=== PATIENT | male | born 1970 | race Caucasian/White ===

== ENCOUNTER 2017-05-05 15:23 | Emergency (ER) | payer OTHER ==
[2017-05-05 15:26] VITALS: BP 148/90; PULSE 106; TEMP 98.4; BMI 35.2
[2017-05-05] MEDS ORDERED: IBUPROFEN 600 MG TABLET (FP) PO ONE (16:12)
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
[2017-05-05] MEDS ORDERED: IBUPROFEN 400 MG TABLET (FP) PO ONE (16:18)
== END 2017-05-05 16:37 | disposition home or self-care (01) ==
LOC: JERFT 15:23
DX: S39.012A Strain of muscle, fascia and tendon of lower back, initial encounter (principal); M62.830 Muscle spasm of back; X50.1XXA Overexertion from prolonged static or awkward postures, initial encounter; Y93.89 Activity, other specified; X08.8XXA Exposure to other specified smoke, fire and flames, initial encounter; Y92.89 Other specified places as the place of occurrence of the external cause; Y99.0 Civilian activity done for income or pay
CPT/HCPCS: 99281-25

== ENCOUNTER 2017-12-13 02:43 | Emergency (ER) | payer OTHER ==
[2017-12-13 02:55] VITALS: BP 149/96; PULSE 101; TEMP 98.1; BMI 34.4
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
[2017-12-13] MEDS ORDERED: NAPROXEN 500 MG TABLET (FP) PO ONE (03:27)
[2017-12-13] MEDS ORDERED: NAPROXEN 500 MG TABLET (FP) ONE (03:33)
== END 2017-12-13 04:17 | disposition home or self-care (01) ==
LOC: JER 02:43
DX: S16.1XXA Strain of muscle, fascia and tendon at neck level, initial encounter (principal); X50.0XXA Overexertion from strenuous movement or load, initial encounter; W01.0XXA Fall on same level from slipping, tripping and stumbling without subsequent striking against object, initial encounter; Y93.89 Activity, other specified; Y92.414 Local residential or business street as the place of occurrence of the external cause; Y99.0 Civilian activity done for income or pay
CPT/HCPCS: 99283-25

== ENCOUNTER 2018-03-08 07:05 | Emergency (ER) | payer OTHER ==
[2018-03-08 07:17] VITALS: BP 136/90; PULSE 88; TEMP 98; BMI 34.4
[2018-03-08] MEDS ORDERED: IBUPROFEN 600 MG TABLET (FP) PO ONE ×2 (07:24→07:32)
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
== END 2018-03-08 08:50 | disposition home or self-care (01) ==
LOC: JER 07:05
DX: S39.82XA Other specified injuries of lower back, initial encounter (principal); W10.8XXA Fall (on) (from) other stairs and steps, initial encounter; Y93.89 Activity, other specified; Y92.89 Other specified places as the place of occurrence of the external cause; Y99.0 Civilian activity done for income or pay; X02.8XXA Other exposure to controlled fire in building or structure, initial encounter
CPT/HCPCS: 72100-TC-FY; 99282-25

== ENCOUNTER 2019-04-26 11:24 | Emergency (ER) | payer OTHER ==
[2019-04-26 11:31] VITALS: BP 159/100; PULSE 97; TEMP 98; BMI 34.4
[2019-04-26] MEDS ORDERED: IBUPROFEN 400 MG TABLET (FP) PO ONE ×2 (11:35→11:43)
[2019-04-26] MEDS ORDERED: METHOCARBAMOL 500 MG TABLET PO ONE (11:35)
[2019-04-26] MEDS ORDERED: METHOCARBAMOL 500 MG TABLET ONE ×2 (11:40→11:41)
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
[2019-04-26] MEDS ORDERED: CYCLOBENZAPRINE HCL 10 MG TABLET (FP) PO ONE (11:43)
[2019-04-26] MEDS ORDERED: CYCLOBENZAPRINE HCL 10 MG TABLET (FP) ONE (11:44)
== END 2019-04-26 11:50 | disposition home or self-care (01) ==
LOC: JERFT 11:24
DX: R25.2 Cramp and spasm (principal); S16.1XXA Strain of muscle, fascia and tendon at neck level, initial encounter; X58.XXXA Exposure to other specified factors, initial encounter; Y93.89 Activity, other specified; Y92.410 Unspecified street and highway as the place of occurrence of the external cause; Y99.0 Civilian activity done for income or pay; I10 Essential (primary) hypertension
CPT/HCPCS: 99281-25

== ENCOUNTER 2019-12-07 15:36 | Emergency (ER) | payer OTHER ==
[2019-12-07 16:04] VITALS: BP 144/97; PULSE 82; TEMP 98.5; BMI 34.4
--- NOTE | 2019-12-07 16:20 | PDOC ---
History of Present Illness - General Chief Complaint: Injury Stated Complaint: NECK/SHOULDER INJ Time Seen by Provider: 12/07/19 16:12 - History of Present Illness Initial Comments: 12/07/19 16:18 49-year-old male with a past medical history of psoriasis on Humira presents for evaluation of right shoulder pain. Patient states he was climbing up a ladder with a tool on his hand when he forcefully grabbed the leg of the ladder feeling a strain in his right shoulder Past History - Past Medical History Allergies/Adverse Reactions: Allergies Allergy/AdvReac Type Severity Reaction Status Date / Time No Known Allergies Allergy Verified 04/26/19 11:31 Home Medications: Ambulatory Orders Atorvastatin Ca [Lipitor] 20 mg PO HS 03/08/18 Lotrel 10-40 1 tab PO DAILY 03/08/18 Methocarbamol [Robaxin -] 500 mg PO BID PRN #14 tablet 04/26/19 Naproxen 500 mg PO BID PRN #20 tablet 04/26/19 Cyclobenzaprine HCl [Flexeril 10 mg] 10 mg PO HS PRN #10 tablet 12/07/19 COPD: No HTN: Yes - Immunization History Td Vaccination: Yes Immunization Up to Date: Yes - Psycho Social/Smoking Cessation Hx Smoking Status: No Smoking History: Never smoked Years of Tobacco Use: 0 Have you smoked in the past 12 months: No Number of Cigarettes Smoked Daily: 0 Cigars Per Day: 0 Information on smoking cessation initiated: No Hx Alcohol Use: No Drug/Substance Use Hx: No Substance Use Type: None Review of Systems - Review of Systems Musculoskeletal: Yes: Joint Pain, Neck Pain *Physical Exam - Vital Signs Last Vital Signs Temp Pulse Resp BP Pulse Ox 98.5 F 82 17 144/97 95 12/07/19 16:01 12/07/19 16:01 12/07/19 16:01 12/07/19 16:01 12/07/19 16:01 - Physical Exam 12/07/19 16:18 Right shoulder skin color and temperature normal range of motion is full and nonpainful 5 out of 5 strength with supraspinatus isolation negative impingement maneuvers negative Spurling sign mild tenderness about the right levator scapula with palpable spasm no gross sensorimotor deficits neurovascular intact Medical Decision Making - Medical Decision Making 12/07/19 16:19 Right shoulder strain follow-up with Ortho Discharge - Discharge Information Problems reviewed: Yes Clinical Impression/Diagnosis: Right shoulder strain Condition: Stable Disposition: HOME - Admission No - Additional Discharge Information Prescriptions: Cyclobenzaprine HCl [Flexeril 10 mg] 10 mg PO HS PRN #10 tablet PRN Reason: Muscle Spasms - Follow up/Referral Referrals: Fortunato Trimble DO [Staff Physician] - - Patient Discharge Instructions Additional Instructions: Tylenol and Motrin as directed for pain. Please take the muscle relaxer as prescribed. Return to the emergency room for worsening symptoms. And without fail follow-up with orthopedic surgery in 2 to 3 days for further evaluation and treatment options. - Post Discharge Activity Work/Back to School Note: Back to Work
== END 2019-12-07 16:23 | disposition home or self-care (01) ==
LOC: JERFT 15:36
DX: S46.811A Strain of other muscles, fascia and tendons at shoulder and upper arm level, right arm, initial encounter (principal); X50.0XXA Overexertion from strenuous movement or load, initial encounter; Y93.39 Activity, other involving climbing, rappelling and jumping off; Y92.89 Other specified places as the place of occurrence of the external cause; Y99.0 Civilian activity done for income or pay
CPT/HCPCS: 99283-25

== ENCOUNTER 2021-06-21 18:32 | Emergency (ER) | payer OTHER ==
[2021-06-21 18:53] VITALS: BP 153/95; PULSE 92; TEMP 98; BMI 32.5
[2021-06-21] MEDS ORDERED: DIPHTH,PERTUSS(ACELL),TET 0.5 ML DISP.SYRIN IM ONE ×3 (19:34→19:35)
== END 2021-06-21 19:45 | disposition home or self-care (01) ==
LOC: JERFT 18:32
PROC: 3E0234Z Introduction of Serum, Toxoid and Vaccine into Muscle, Percutaneous Approach (ICD-10-PCS; principal; 2021-06-21)
DX: S60.511A Abrasion of right hand, initial encounter (principal); W22.8XXA Striking against or struck by other objects, initial encounter
CPT/HCPCS: 73130-TC-RT-FY; 90715; 99283-25

== ENCOUNTER 2021-08-13 13:32 | Emergency (ER) | payer OTHER ==
[2021-08-13 13:56] VITALS: BP 111/74; PULSE 88; TEMP 97; BMI 32.3
[2021-08-13] MEDS ORDERED: ONDANSETRON 4 MG/2 ML VIAL IVPUSH ONE (15:04)
[2021-08-13] MEDS ORDERED: FAMOTIDINE 20 MG/50 ML IVPB 20 MG/50 ML MG IVPB ONE ×2 (15:04→15:19)
[2021-08-13] MEDS ORDERED: SODIUM CHLORIDE 0.9% 500 ML INFUS.BAG IV ONE (15:04)
[2021-08-13] MEDS ORDERED: ONDANSETRON 4 MG/2 ML VIAL ONE (15:19)
[2021-08-13 15:29] LABS: BASO % 0.4 % (0-2.0); EOS % 1.1 % (0-4.5); HEMATOCRIT 45.7 % (35.4-49); HEMOGLOBIN 15.7 GM/dL (11.7-16.9); LYMPH % 19.9 % (8-40); MCH 31.5 pg (25.7-33.7); MCHC 34.4 g/dl (32.0-35.9); MEAN CELL VOLUME 91.7 fl (80-96); MEAN PLT VOLUME 7.7 fl (7.5-11.1); MONO % 6.3 % (3.8-10.2); NEUT % 72.3 % (42.8-82.8); PLATELET COUNT 451 10^3/uL (134-434); RBC 4.99 M/mm3 (4.00-5.60); RDW 13.1 % (11.9-15.9); WHITE BLOOD COUNT 10.3 K/mm3 (4.0-10.0)
[2021-08-13 15:44] LABS: CHLORIDE 107 mmol/L (98-107); SODIUM 138 mmol/L (136-145)
[2021-08-13 15:45] LABS: CALCIUM 9.4 mg/dL (8.5-10.1)
[2021-08-13 15:47] LABS: ALBUMIN 4.3 g/dl (3.4-5.0); ANION GAP 10 MMOL/L (8-16); BLOOD UREA NITROGEN 19.1 mg/dL (7-18); CO2 22 mmol/L (21-32); LIPASE 88 U/L (73-393)
[2021-08-13 15:48] LABS: SGPT/ALT 47 U/L (13-61)
[2021-08-13 15:49] LABS: EPI CELLS 12 /uL (0-25.1); HYALINE CASTS 19 /uL (0-3.1); URINE APPEARANCE CLEAR; URINE BILIRUBIN NEGATIVE (NEGATIVE); URINE COLOR DK YELLOW; URINE GLUCOSE (UA) NEGATIVE (NEGATIVE); URINE KETONE TRACE (NEGATIVE); URINE LEUK ESTERASE NEGATIVE (NEGATIVE); URINE NITRITE NEGATIVE (NEGATIVE); URINE PROTEIN 1+ (NEGATIVE); URINE RBC 12 /uL (0-23.9); URINE WBC 13 /uL (0-25.8)
[2021-08-13 15:50] LABS: BILIRUBIN,TOTAL 0.4 mg/dL (0.2-1); CREATININE 1.2 mg/dL (0.55-1.3); SGOT/AST 19 U/L (15-37); TOT PROT 8.5 g/dl (6.4-8.2)
[2021-08-13 15:51] LABS: ALK PHOS 90 U/L (45-117)
[2021-08-13 15:54] LABS: GLUCOSE,RANDOM 105 mg/dL (74-106)
[2021-08-13 19:29] LABS: URINE BACTERIA NEGATIVE /hpf (NEGATIVE)
== END 2021-08-13 18:35 | disposition home or self-care (01) ==
LOC: JER 13:32
PROC: 3E033NZ Introduction of Analgesics, Hypnotics, Sedatives into Peripheral Vein, Percutaneous Approach (ICD-10-PCS; principal; 2021-08-13)
PROC: 3E033GC Introduction of Other Therapeutic Substance into Peripheral Vein, Percutaneous Approach (ICD-10-PCS; 2021-08-13)
DX: K44.9 Diaphragmatic hernia without obstruction or gangrene (principal); K21.01 Gastro-esophageal reflux disease with esophagitis, with bleeding
CPT/HCPCS: 36415; 74177-TC; 80053; 81003; 82550; 83690; 84484; 85025; 93005; 93010; 99285-25